=== PATIENT | male | born 1960 | race Two or more races ===

== ENCOUNTER 2020-01-31 19:17 | Emergency (ER) | payer OTHER ==
[~2020-01-31] VITALS: Ht 177.8 cm; Wt 68.0 kg
[2020-01-31] MEDS ORDERED: HYDROMORPHONE 1 MG/1 ML DISP.SYRIN IM ONE (20:00)
[2020-01-31] MEDS ORDERED: ONDANSETRON 4 MG/2 ML VIAL IM ONE (20:00)
--- NOTE | 2020-01-31 20:00 | NUR ---
PATIENT WAS MSE BY DR VASQUEZ IN ROOM 04A. WAS BIB [facility] 839.
[2020-01-31] MEDS ORDERED: HYDROMORPHONE 2 MG/1 ML DISP.SYRIN ONE (20:01)
[2020-01-31] MEDS ORDERED: ONDANSETRON 4 MG/2 ML VIAL ONE (20:02)
[2020-01-31] MEDS ORDERED: NEOMY/BACITRA/POLYMYXIN B OINT UD PACKET TP ONE ×2 (20:35→20:45)
[2020-01-31 21:15] VITALS: BP 115/61
--- NOTE | 2020-01-31 21:18 | NUR ---
Patient discharged to home in stable condition. Written and verbal after care instructions given. Patient verbalizes understanding of instructions. Stressed follow up or return to ER for worsening s/s.
== END 2020-01-31 21:15 | disposition home or self-care (01) ==
LOC: ER 19:19
DX: S82.831A Other fracture of upper and lower end of right fibula, initial encounter for closed fracture (principal); S82.391A Other fracture of lower end of right tibia, initial encounter for closed fracture; V19.88XA Pedal cyclist (driver) (passenger) injured in other specified transport accidents, initial encounter; Y93.55 Activity, bike riding; Y92.830 Public park as the place of occurrence of the external cause
CPT/HCPCS: 99285; 73130; 73564; 73590; 73610; 96372 ×2; J1170; J2405; A4217; A4663